=== PATIENT | female | born 1990 | race Hispanic/Latino ===

== ENCOUNTER 2022-05-02 15:21 | Emergency (ER) | payer MEDICAID, SELFPAY ==
[~2022-05-02 15:21] MED LIST: Iopamidol-370 76% 500 ML 1 ML ONE
[2022-05-02 15:58] LABS: #Lymphocytes 1.3 thou/uL (1.20-3.40); #Monocytes 0.6 thou/uL (0.11-0.59); #Neutrophils 9.3 thou/uL (1.40-6.50); %Basophils 0.1 % (0.0-1.0); %Eosinophils 0.4 % (0.0-10.0); %Lymphocytes 11.1 % (21.0-51.0); %Monocytes 5.2 % (0.0-10.0); %Neutrophils 83.2 % (42.0-75.0); Hemoglobin 12.6 g/dL (12.0-16.0); Mean Corpuscular HGB CONC 32.3 g/dL (32.0-36.0); Mean Corpuscular Hemoglobin 28.7 pg (27.0-31.0); Mean Corpuscular Volume 88.9 fl (78.0-98.0); Mean Platelet Volume 6.7 fL (7.4-10.4); Platelet Count 312 thou/uL (130-400); RBC Distribution Width 11.7 % (11.5-14.5); White Blood Cell (WBC) Count 11.2 thou/uL (4.8-10.8)
[2022-05-02 15:59] LABS: BHCG - Serum Negative (NEGATIVE); Pregs Control Background? CLEAR/WHITE (CLR/WHITE); Pregs Control Bar Appear? YES (CONTROL BAR)
[2022-05-02 16:00] LABS: Bilirubin Negative (Negative); Blood, Urine Negative (Negative); Clarity Clear (Clear); Glucose, Urine (Dipstick) Normal (Negative); Ketone, Urine Negative (Negative); Leukocyte Negative Leu/uL (Negative); Nitrite Negative (Negative); Protein, Urine (Dipstick) Negative (Neg-Trace); Specific Gravity, Urine 1.011 (1.002-1.036); Urobilinogen Normal mg/dL (Less than 2); pH, Urine 6.5 (5.0-9.0)
[2022-05-02 16:08] LABS: ALT (SGPT) 18 U/L (8-55); AST (SGOT) 17 U/L (5-34); Albumin 4.4 g/dL (3.5-5.0); Alkaline Phosphatase 85 U/L (40-110); Anion Gap 15 mmol/L (10-20); BUN (Urea Nitrogen) 5 mg/dL (7.0-18.7); Bilirubin, Total 0.4 mg/dL (0.2-1.2); Calc. Creatinine Clearance 0 mL/min (70-130); Carbon Dioxide 26 mmol/L (22-29); Chloride 101 mmol/L (98-107); Estimated GFR 109; Globulin 4.8 g/dL (2.4-3.5); Glucose 100 mg/dL (70-105); Potassium 3.2 mmol/L (3.5-5.1); Protein, Total 9.2 g/dL (6.0-8.3); Sodium 139 mmol/L (136-145)
[2022-05-02] MEDS ORDERED: Ondansetron PF 4 MG/2 ML Vial ONE (16:29)
[2022-05-02] MEDS ORDERED: Ketorolac Tromethamine 30 MG/ML VIAL ONE (16:29)
[2022-05-02 17:18] LABS: Magnesium 1.9 mg/dL (1.6-2.6)
[2022-05-02] MEDS ORDERED: Potassium Chloride 20 MEQ TAB ONE (18:58)
== END 2022-05-02 19:32 | disposition home or self-care (01) ==
LOC: ERS 15:21
DX: K11.20 Sialoadenitis, unspecified (principal); E11.9 Type 2 diabetes mellitus without complications
CPT/HCPCS: 70487; 80053; 81003; 83605; 83735; 84703; 85025; 87040; 93005; 96374; 96375; J1885; J2405; Q9967